=== PATIENT | female | born 1970 | race Caucasian/White ===

== ENCOUNTER 2024-04-27 05:10 | Emergency (ER) | payer OTHER, SELFPAY ==
[2024-04-27] VITALS (7 sets, daily range): BP systolic 132–158; BP diastolic 87–145
[2024-04-27 05:45] LABS: % Basophils 1.1 % (0-2); % Eosinophils 3.2 % (0-6); % Immature Granulocytes 0.3 % (0-0.5); % Lymphocytes 29.8 % (20.5-51.1); % Neutrophils 56.6 % (42.2-75.2); Absolute Basophils 0.1 10^3/uL (0-0.2); Absolute Eosinophils 0.3 10^3/uL (0-0.7); Absolute Lymphocytes 2.3 10^3/uL (1.2-3.4); Absolute Monocytes 0.7 10^3/uL (0.1-0.6); Absolute Neutrophils 4.5 10^3/uL (1.4-6.5); Hematocrit 38.8 % (37.0-47.0); Hemoglobin 13.5 g/dL (12.0-16.0); Mean Corp Hgb Conc. 34.8 g/dL (33.0-37.0); Mean Corpuscular Hgb 28.4 pg (27.0-31.0); Mean Corpuscular Volume 81.7 fL (81.0-99.0); Mean Platelet Volume 8.8 fL (7.4-10.4); Nucleated Red Blood Cells % 0 %; Platelet Count 283 10^3/uL (130-400); Red Blood Cell Count 4.75 10^6/uL (4.20-5.40); Red Cell Dist. Width 12.3 % (11.5-14.5); White Blood Cell Count 7.9 10^3/uL (4.8-10.8)
[2024-04-27 06:05] LABS: ALT (SGPT) 18 U/L (0-35); AST (SGOT) 20 U/L (14-36); Albumin 4.3 g/dl (3.5-5.0); Alkaline Phosphatase 77 U/L (38-126); Blood Urea Nitrogen 16 mg/dl (7-17); Carbon Dioxide 21 mmol/L (22-30); Chloride 104 mmol/L (98-107); Glucose 105 mg/dl (70-99); Lipase 167 U/L (23-300); Sodium 135 mmol/L (135-145); Total Bilirubin 0.6 mg/dl (0.2-1.3); Total Protein 6.6 g/dl (6.3-8.2); eGFR > 60.00
--- NOTE | 2024-04-27 07:49 | ED.GENMED ---
History of Present Illness
General
Chief Complaint: Abdominal Pain
Source: patient
Exam Limitations: none
Time Seen by Provider: 04/27/24 07:27
Nursing documentation reviewed up to this point in time: agreed with
History of Present Illness
History of Present Illness:
53 yr old female presents to the ED for evaluation of upper abdominal pain. Pt c/o of intermittent epigastric pain for past 2 days. Patient Complains of a Bloating Feeling As Been Nauseous and Dry Heaving. She Denies Any Abdominal Pain. Patient
denies any fever or chills. She does report that over the past 2 weeks she coincidentally started drinking Coca-Cola and normally does not drink soda. She reports she would have a glass every night and that would keep her up throughout the night.
Patient does have history reflux and uses Tums a lot at times at night. In addition she has tried Pepto-Bismol. Pepto-Bismol has seemed to help.
She does have a history of diverticulitis with colon resection and abscess but this does not feel the same.
Review of Systems
Review of Systems
Allergies reviewed?: Yes
All Other Systems: ROS reviewed and negative except as documented in HPI and ROS
Constitutional: Reports no symptoms; Denies fever, fatigue or chills
Respiratory: Reports no symptoms
Cardiac: Reports no symptoms
ABD/GI: Reports abdominal pain and nausea; Denies vomiting, diarrhea or constipated
: Reports no symptoms
Musculoskeletal: Reports no symptoms
Skin: Reports no symptoms
Neurological: Reports no symptoms
Psychiatric: Reports no symptoms
Phy Exam
General Physical Exam
General Presentation: no apparent distress
General age: appears stated age
General Skin: warm and dry
General Habitus: normal
General Mental: alert
General Hydration: appears well hydrated
Neurological Exam
Neurological Exam: alert and oriented x3
Musculoskeletal Exam
Musculoskeletal Exam: full ROM
Skin Exam
Skin Exam: normal color and warm/dry
Course
Orders/Labs/Results
Orders:
Orders
04/27/24 05:31
Complete Blood Count/With Diff Urgent
Comprehensive Metabolic Panel Urgent
Lipase Urgent
04/27/24 07:58
US Abdomen Complete/Upper Urgent
Comment:
Reason For Exam: upper abd pain
04/27/24 10:49
Mag Hydrox/Al Hydrox/Simeth [Maalox] 30 ml Phenobarb/Hyoscy/Atropine/Scop [] 10 ml PO NOW
04/27/24 10:53
Mag Hydrox/Al Hydrox/Simeth [Maalox] 30 ml .ROUTE .STK-MED ONE
Phenobarb/Hyoscy/Atropine/Scop [] 10 ml .ROUTE .STK-MED ONE
Abnormal Lab Results
04/27/24
05:31
Absolute Monos (auto) 0.7 H 10^3/uL
(0.1-0.6)
Carbon Dioxide 21 L mmol/L
(22-30)
Glucose 105 H mg/dl
(70-99)
04/27/24 05:31
04/27/24 05:31
Vital Signs
Initial and Last Documented VS:
Initial Vital Signs
Temp Pulse Resp BP Pulse Ox
98.4 F 100 16 132/87 98
04/27/24 05:15 04/27/24 05:15 04/27/24 05:15 04/27/24 05:15 04/27/24 05:15
Last Documented Vital Signs
Temp Pulse Resp BP Pulse Ox
98.4 F 78 52 146/107 97
04/27/24 05:15 04/27/24 11:36 04/27/24 11:36 04/27/24 11:00 04/27/24 11:36
MDM/Problems Addressed
Differential Diagnosis Includes:
not limited to: GERD, gastritis less likely diverticulitis
MDM/Problems Addressed:
Patient well-appearing in no acute distress likely gastritis, reflux. Patient has no lower left-sided abdominal tenderness very point tender epigastric not consistent with diverticulitis. Patient is afebrile afebrile here normal white count normal
LFTs.
Patient did have some relief with Pepto-Bismol at home. She describing epigastric pain with nausea. Abdominal ultrasound is unremarkable for cholelithiasis or acute cholecystitis. She does have gallbladder as I did recommend close outpatient
follow-up repeat ultrasound in 12 months. The common bile duct is minimally distended but up to 8 mm she has absolutely normal LFTs denies any fevers is nontoxic likely reflux/gastritis will DC on Protonix with close outpatient follow with GI. She
has been seen by our GI group here instructed patient to call Tuesday
*Critical Care Note
Total Time (30-74mins, 75-104mins- exclusive of procedures): Not Applicable
ED Attending Note
-
Portions of this chart may have been created with voice recognition software.� Occasional wrong word or��sound alike� substitutions may have occurred due to the inherent limitations of voice recognition software.
Discharge Plan
Departure
Patient Disposition: Home (Routine Discharge)
Date of Disposition: 04/27/24
Time of Disposition: 11:45
Patient with high blood pressure during this ER visit?: Yes
Condition: Fair
Covid-19: Not Applicable
Discharge Problem:
Gastritis
Instructions: Acid Reflux and GERD in Adults (DC), Gastritis - ED discharge instructions, BLOOD PRESSURE
Prescriptions:
New
pantoprazole [Protonix] 40 mg tablet,delayed release (DR/EC)
40 mg PO DAILY Qty: 14 0RF
Referrals:
Taryn Davidson MD [Family Provider] -
Nataly Avila DO [Active] -
Activity Restrictions/Additional Instructions:
As discussed a prescription for Protonix was sent to your pharmacy take as directed. Wever diet for the next several days. Avoid caffeine spicy foods, soda chocolate etc.
closely follow-up with family doctor as well as GI .
please call to make an appointment today for soon as possible.
Return however if any worsening of symptoms
Interventions
Interventions:
*Risk Screen - Suicide Last Done: 04/27/24 05:15
*General Assessment Last Done: 04/27/24 08:16
*Neglect/Abuse Screening Last Done: 04/27/24 08:16
*ED- Fall Risk Assessment Last Done: 04/27/24 08:16
*ED COVID-19 Vaccine History Last Done: 04/27/24 08:16
[facility] Assessment Last Done: 04/27/24 08:15
Discharge Date and Time
Print Language: [id number]
[2024-04-27] MEDS: MAALOX 30 PO (10:55)
== END 2024-04-27 11:59 | disposition home or self-care (01) ==
LOC: EMR 05:10
PROVIDERS: Student in an Organized Health Care Education/Training Program; EMERGENCY PHYSICIAN Student in an Organized Health Care Education/Training Program; FAMILY PHYSICIAN Family Medicine
DX: K29.70 Gastritis, unspecified, without bleeding (principal); R03.0 Elevated blood-pressure reading, without diagnosis of hypertension
CPT/HCPCS: 99284; 76700; 80053; 83690; 85025; 99285